=== PATIENT | female | born 1995 | race Caucasian/White ===

== ENCOUNTER 2017-01-27 23:18 | Emergency (ER) | payer BC ==
--- NOTE | ~2017-01-27 | EKG ---
PATIENT: JONATHAN NIXON UNIT #: [id number] Ventricular Rate: 79 BPM Atrial Rate: 79 BPM P-R Interval: 128 ms QRS Duration: 94 ms Q-T Interval: 360 ms QTC Calculation(Bezet): 412 ms P [place]: 79 degrees Calculated R [place]: 62 degrees Calculated T [place]: 36 degrees Diagnosis Line: Normal sinus rhythm with sinus arrhythmia Diagnosis Line: Right atrial enlargement Diagnosis Line: Borderline ECG Diagnosis Line: No previous ECGs available Diagnosis Line: Confirmed by ADA HERRON MD ([id number]) on 01/30/2017 Diagnosis Line: 9:38:47 AM INTERPRETING MD: GERMAINE TOBAR
[~2017-01-27 23:18] MED LIST: BIRTH CONTROL; CONCERTA PO
[2017-01-27 23:25] LABS: URINE SOURCE CLEAN CATCH
[2017-01-27 23:28] LABS: URINE APPEARANCE CLEAR; URINE BILIRUBIN NEG (NEG); URINE BLOOD NEG (NEG); URINE COLOR YELLOW; URINE GLUCOSE NEG (NORM); URINE KETONE NEG (NEG); URINE LEUKOCYTE ESTERASE 1+ (NEG); URINE NITRATE NEG (NEG); URINE PROTEIN NEG (NEG); URINE UROBILINOGEN 0.2 MG/DL (NORM)
[2017-01-27 23:29] LABS: BASOPHIL# 0.1 X10e3 (0-0.3); BASOPHIL% 0.7 % (0-2.5); EOSINOPHIL# 0.1 X10e3 (0-0.7); HEMATOCRIT 36.4 % (35.0-45.0); HEMOGLOBIN 12.3 gm/dL (12.0-16.0); LYMPHOCYTE% 18.5 % (17.0-45.0); MEAN CELL VOLUME 87.1 FL (83-96); MEAN CORPUSCULAR HEMOGLOBIN 29.4 PG (28-34); MEAN CORPUSCULAR HGB CONC 33.7 g/dL (30-36); MONOCYTE# 0.8 X10e3 (0-1.0); MONOCYTE% 7.2 % (3.0-12.0); NEUTROPHIL# 8.1 X10e3 (1.5-7.1); NEUTROPHIL% 72.6 % (40-75); PLATELET COUNT 366 X10e3 (140-420); RED BLOOD COUNT 4.18 X10e (3.90-5.30); RED CELL DISTRIBUTION WIDTH 12.9 % (11.0-15.5); WHITE BLOOD COUNT 11.1 X10e3 (4.0-10.5)
[2017-01-27 23:30] LABS: DIFF IND NO
[2017-01-27 23:36] LABS: CULTURE INDICATED? YES; MICRO INDICATED? YES; URINE BACTERIA NEG (NEG); URINE RBC 0-2 /[HPF] (0-2)
[2017-01-27 23:37] LABS: URINE SQUAMOUS EPITHELIAL CELL MODERATE /[HPF]
[2017-01-27 23:45] LABS: BUN/CREATININE RATIO 15.55; CALCIUM SERUM 9.8 mg/dL (8.4-10.2); CREATININE SERUM 0.9 mg/dL (0.6-1.4); GLOM FILT RATE Estimated 92.1 mL/min (>60)
== END 2017-01-28 00:05 | disposition home or self-care (01) ==
LOC: SED 23:18
PROVIDERS: Emergency Medicine
DX: R42 Dizziness and giddiness (principal); Z88.2 Allergy status to sulfonamides
CPT/HCPCS: 36415; 80048; 81003; 84703; 85025; 87086; 93005; 99283